=== PATIENT | male | born 1995 | race Caucasian/White ===

== ENCOUNTER 2017-05-14 21:00 | Inpatient (IN) | payer OTHER ==
--- NOTE | ~2017-05-14 | PN ---
Unit #: [id number] #: [id number] Patient: KAMILA TURNER [id number] [facility] [address] [place] [address] [id number] MR#: [id number] NAME: KAMILA TURNER ROOM: P173 Age: 21 Sex: M Admission Date: 05/14/2017 : 1995 Attending Physician: Pedro Bermudez M.D. Admitting Physician: Pedro Bermudez M.D. Primary Care Physician: Primary Care Physician Erika RUIZ PROGRESS NOTES DATE 05/15/2017 DISCUSSION The patient requests for initiation of Seroquel which he has taken with some success in the past, he is exhibiting little in the way of signs or symptoms of withdrawal but is complaining of poor sleep, homelessness, and hopelessness related thereto. He continues to endorse positive suicidal ideation. Dictated by... Pedro Bermudez M.D. CB/north TD: 05/16/2017 12:50 JOB #: [id number] [facility] PROGRESS NOTES Page 1 of 1 X Pedro Bermudez MD PROGRESS NOTE
--- NOTE | ~2017-05-14 | HP ---
Unit #: [id number] #: [id number] Patient: KAMILA TURNER [id number] [place] [address] [id number] MR#: [id number] NAME: KAMILA TURNER. ROOM: P173 Age: 21 Sex: M Admission Date: 05/14/2017 : 1995 Attending Physician: Pedro Bermudez M.D. Admitting Physician: Pedro Bermudez M.D. Primary Care Physician: Primary Care Physician No HISTORY AND PHYSICAL HISTORY OF PRESENT ILLNESS The patient is a 21-year-old male who states he is admitted due to detox from heroin, benzos and alcohol. PAST MEDICAL HISTORY None. PAST SURGICAL HISTORY Significant for back surgery of some sort. SOCIAL HISTORY Positive for smoking, alcohol and drugs. ALLERGIES None. FAMILY HISTORY Noncontributory. REVIEW OF SYSTEMS CONSTITUTIONAL: No fever or chills. HEENT: Denies any sore throat, ear pain or runny nose. CARDIOVASCULAR: Denies chest pain, irregular heart rhythm or palpitations. CHEST: Denies shortness of breath or cough. No hemoptysis. GASTROINTESTINAL: Denies nausea, vomiting, diarrhea or chronic constipation. ENDOCRINE: Denies history of increased thirst or urination. No recent significant weight loss or gain. GENITOURINARY: Denies dysuria, frequency, or hematuria. SKIN: Denies any rashes. HEMATOLOGIC: Denies history of increased bleeding or bruising. MUSCULOSKELETAL: Denies any hot, swollen joints. No generalized muscle pain. NEUROLOGIC: Denies problems with vision or speech. No frequent, severe headaches. No numbness, tingling or weakness in any extremities. Denies loss of bladder or bowel control. CURRENT MEDICATIONS None. PHYSICAL EXAMINATION Unit #: [id number] #: [id number] Patient: KAMILA TURNER GENERAL: Alert, oriented in no acute distress. VITAL SIGNS: Temperature 97.8, heart rate 91, respirations 16, blood pressure 125/74. HEIGHT: 5 feet 7 inches WEIGHT: 160 pounds SKIN: Warm and dry without rash. Track funes to the left AC, tattoos to the right chest, right and left upper arm, scar to the midline back. HEENT: Normocephalic. TMs not viewed. Oral and nasal passages clear. Conjunctivae clear. PERRLA. EOMs intact. NECK: Supple without lymphadenopathy or thyromegaly. HEART: Regular rate and rhythm without murmur. LUNGS: Clear. ABDOMEN: Soft, nontender, without masses or hepatosplenomegaly. : Not done. EXTREMITIES: No evidence of cyanosis, clubbing or edema. Moves all without focal deficit. NEUROLOGICAL: Grossly within normal limits. Cranial Nerves: II: Visual stahl are intact. III, IV AND : Extraocular movements are intact. Pupils are equal, round and reactive to light. V: Facial sensation is grossly normal. VII: Facial movements and expression are normal. VIII: Auditory acuity grossly intact. IX, X: Uvula is midline. Phonation is normal. XI: Patient shrugs shoulders and turns head normally. XII: Tongue protrudes in the midline. Sensory and Motor Function: Sensory and motor sensation is grossly normal. Motor: moves all extremities well. Coordination: Gait is normal. Deep Tendon Reflexes: Intact. IMPRESSION Psychiatric admission. RECOMMENDATIONS Psychiatric, per psychiatrist. MEDICAL: I see no contraindications to participating in facility's activities. MEDICAL PROGNOSIS Good. Dictated by... Ashwini Salciod/jerry TD: 05/16/2017 02:34 JOB #: [id number] Unit #: [id number] #: [id number] Patient: KAMILA TURNER HISTORY AND PHYSICAL Page 1 of 1 X Summer Kovacs APR X HISTORY AND PHYSICAL
--- NOTE | ~2017-05-14 | PN ---
Unit #: [id number] #: [id number] Patient: KAMILA TURNER [id number] [facility] [address] [place] [address] [id number] MR#: [id number] NAME: KAMILA TURNER ROOM: P173 Age: 21 Sex: M Admission Date: 05/14/2017 : 1995 Attending Physician: Pedro Bermudez M.D. Admitting Physician: Pedro Bermudez M.D. Primary Care Physician: Primary Care Physician Erika RUIZ PROGRESS NOTES DATE 05/17/2017 DISCUSSION The patient is active within the therapeutic milieu and appears much, much brighter. He is reporting reduction in suicidal ideation and should he sustain progress discharge will likely take place tomorrow. Dictated by... Pedro Bermudez M.D. CB/north TD: 05/17/2017 13:50 JOB #: [id number] [facility] PROGRESS NOTES Page 1 of 1 X Pedro Bermudez MD X PROGRESS NOTE
--- NOTE | ~2017-05-14 | DS ---
Unit #: [id number] #: [id number] Patient: KAMILA TURNER [id number] [facility] [address] [place] [address] [id number] MR#: [id number] NAME: KAMILA TURNER. ROOM: P173 Age: 21 Sex: M Admission Date: 05/14/2017 : 1995 Discharge Date: 05/18/2017 Attending Physician: Pedro Bermudez M.D. Primary Care Physician: Primary Care Physician No DISCHARGE SUMMARY REASON FOR ADMISSION The patient is a 21-year-old white male, admitted with history of alcohol, benzodiazepine, and heroin abuse. HOSPITAL COURSE The patient was admitted to the [facility] and placed on routine detoxification protocol for opioids, alcohol, and benzodiazepines. Seroquel 100 mg was re-initiated. The patient's stay in the hospital was a brief and uneventful one. He participated actively within therapeutic milieu and by 05/18/2017, exhibited no signs or symptoms of withdrawal. He requested discharge and was so ordered. FINAL DIAGNOSES Alcohol use disorder, sedative hypnotic use disorder, opioid use disorder, mood disorder unspecified. DISPOSITION ON DISCHARGE The patient is discharged on the following medications; Seroquel 100 mg at bedtime for mood stabilization. DISCHARGE INSTRUCTIONS No dietary or physical restrictions were placed on the patient at the time of discharge. FOLLOWUP Followup will take place through the auspices of community mental health resources. PROGNOSIS The patient's prognosis is considered fair. Dictated by... Pedro Bermudez M.D. CB/chinol TD: 05/18/2017 18:06 JOB #: [id number] Unit #: [id number] #: [id number] Patient: KAMILA TURNER DISCHARGE SUMMARY Page 1 of 1 X Pedro Bermudez MD X DISCHARGE SUMMARY
--- NOTE | ~2017-05-14 | PA ---
Unit #: [id number] #: [id number] Patient: KAMILA TURNER [id number] [place] [address] [id number] I MR#: [id number] NAME: KAMILA TURNER ROOM: P173 Age: 21 Sex: M Admission Date: 05/14/2017 : 1995 Date of Assessment: 05/15/2017 Attending Physician: Pedro Bermudez M.D. Admitting Physician: Pedro Bermudez M.D. Primary Care Physician: Primary Care Physician No PSYCHIATRIC ASSESSMENT IDENTIFYING INFORMATION The patient is a 21-year-old white male admitted with abuse of heroin, benzodiazepines, alcohol and suicidal ideation. CHIEF COMPLAINT None given. INFORMANT Chart, patient cannot be aroused for interview. HISTORY OF PRESENT ILLNESS The patient is a 21-year-old white male last discharged from this facility on 12/16/2013. The patient reports that he has been abusing heroin, benzodiazepines and alcohol and was reporting positive suicidal ideation with a plan to overdose on heroin. The patient reports history of withdrawal seizures. He is no prescribed psychotropic home medications at this time. The patient reports that he has recently been unemployed after he had suffered a seizure at his work place. When seen today the patient is sleeping soundly and cannot be aroused for interview. PAST PSYCHIATRIC HISTORY As noted previously the patient has been in treatment at this facility in the past. PAST MEDICAL HISTORY Significant for the patient's reported history of seizure disorder. MEDICATIONS None. ALLERGIES None. FAMILY HISTORY Noncontributory. SOCIAL HISTORY The patient reports abuse of intravenous heroin as well as alcohol illicitly obtained benzodiazepines. MENTAL STATUS EXAMINATION At this time reveals the patient to be a soundly sleeping white male who cannot be aroused for further interview. The patient's assets to be Unit #: [id number] #: [id number] Patient: KAMILA TURNER assessed. Liabilities, lack of resources. DIAGNOSTIC IMPRESSSION 1. Dysthymic disorder 2. Opioid use disorder 3. Sedative hypnotic use disorder 4. Alcohol use disorder PSYCHIATRIC PLAN/TREATMENT GOALS The patient remains hospitalized for safety and stabilization. A routine detoxification protocol for opioids and alcohol has been initiated and seizure precautions will be initiated. The patient will participate in appropriate beyer and milieu activities with an estimated length of stay in the hospital three to five days. Dictated by... Jackson Celis TD: 05/15/2017 23:16 JOB #: [id number] PSYCHIATRIC ASSESSMENT Page 1 of 1 X Pedro Bermudez MD X PSYCHIATRIC ASSESSMENT
[2017-05-15 11:19] LABS: BASOPHIL# 0.1 X10e3 (0-0.3); BASOPHIL% 1.4 % (0-2.5); EOSINOPHIL# 0.5 X10e3 (0-0.7); EOSINOPHIL% 6.3 % (0.0-7.0); HEMATOCRIT 43.6 % (38.0-50.0); HEMOGLOBIN 14.8 gm/dL (13.0-16.0); LYMPHOCYTE# 3.2 X10e3 (1.0-3.5); LYMPHOCYTE% 42.9 % (17.0-45.0); MEAN CELL VOLUME 86.5 FL (83-96); MEAN CORPUSCULAR HEMOGLOBIN 29.3 PG (28-34); MEAN CORPUSCULAR HGB CONC 33.9 g/dL (30-36); MEAN PLATELET VOLUME 7.6 FL (6.5-11.5); MONOCYTE# 0.7 X10e3 (0-1.0); NEUTROPHIL% 40.4 % (40-75); PLATELET COUNT 297 X10e3 (140-420); RED BLOOD COUNT 5.04 X10e (3.90-5.60); RED CELL DISTRIBUTION WIDTH 13.5 % (11.0-15.5); WHITE BLOOD COUNT 7.5 X10e3 (4.0-10.5)
[2017-05-15 11:33] LABS: DIFF IND NO
[2017-05-15 11:39] LABS: ALBUMIN SERUM 3.9 g/dL (3.5-5.0); BILIRUBIN,TOTAL 0.4 mg/dL (0.2-2.0); BUN/CREATININE RATIO 11.11; CALCIUM SERUM 8.9 mg/dL (8.4-10.2); CREATININE SERUM 0.9 mg/dL (0.6-1.4); GLOM FILT RATE Estimated 120.8 mL/min (>60); POTASSIUM 4.3 mmol/L (3.5-5.1); PROTEIN TOTAL SERUM 6.3 g/dL (6.0-8.3)
[2017-05-15 14:01] LABS: URINE APPEARANCE CLEAR; URINE BILIRUBIN NEG (NEG); URINE BLOOD NEG (NEG); URINE COLOR YELLOW; URINE GLUCOSE NEG (NEG); URINE KETONE NEG (NEG); URINE LEUKOCYTE ESTERASE NEG (NEG); URINE NITRATE NEG (NEG); URINE PROTEIN NEG (NEG); URINE UROBILINOGEN 0.2 MG/DL (NEG)
[2017-05-15 14:13] LABS: AMPHETAMINE NEG (NEG); BARBITURATES NEG (NEG); BENZODIAZEPINES NEG (NEG); COCAINE NEG (NEG); MARIJUANA NEG (NEG); OPIATES POS (NEG); TRICYCLIC ANTIDEPRESSANTS NEG (NEG); U METHADONE NEG (NEG)
== END 2017-05-18 14:15 | DRG 881 ==
LOC: P1E 23:55
PROVIDERS: Specialist
PROC: HZ2ZZZZ Detoxification Services for Substance Abuse Treatment (ICD-10-PCS; principal; 2017-05-14)
DX: F34.1 Dysthymic disorder (principal); R45.851 Suicidal ideations; F11.10 Opioid abuse, uncomplicated; F13.10 Sedative, hypnotic or anxiolytic abuse, uncomplicated; F10.10 Alcohol abuse, uncomplicated; F17.210 Nicotine dependence, cigarettes, uncomplicated
CPT/HCPCS: 80053; 80307; 81003; 85025; 86592